=== PATIENT | male | born 1955 | race Caucasian/White ===

== ENCOUNTER 2021-10-09 10:13 | Day surgery (SDC) | payer MEDICARE, BC, SELFPAY ==
--- NOTE | 2021-10-09 06:38 | W.ANESPRE ---
General Info Date of Service Date Performed: 10/09/21 Height: 5 ft 5 in Weight: 74.843 kg Body Mass Index (BMI): 27.4 Surgical Procedure: Operation Date: 10/09/21 12:10 Proposed Procedure Side Surgeon p Cataract Extraction with IOL Implant Left Hernesto Pollard MD Meds Allergies and Home Medications Allergies Allergy/AdvReac Type Severity Reaction Status Date / Time No Known Allergies Allergy Unverified 10/09/21 10:12 Home Medication Medication Instructions Recorded ascorbic acid (vitamin C) 1,000 mg See Rx Instructions .Route .COMPLEX 10/06/21 tablet (Vitamin C) aspirin 81 mg tablet,delayed 81 mg PO HS 10/06/21 release diphenhydramine HCl 25 mg capsule 25 mg PO PRN PRN 10/06/21 (Benadryl) ibuprofen 200 mg capsule 400 mg PO PRN PRN 10/06/21 quxwfczobkic-skrqmmhh-crscyt tablet See Rx Instructions .Route .COMPLEX 10/06/21 omega 0-www-mut-fish oil 1,000 mg See Rx Instructions .Route .COMPLEX 10/06/21 (120 mg-180 mg) capsule (Fish Oil) omeprazole 20 mg capsule,delayed 20 mg PO DAILY 10/06/21 release trazodone 50 mg tablet 50 mg PO QHS 10/06/21 triamcinolone acetonide 0.1 % 1 applic topical BID 10/06/21 topical cream PFSH Medical History Medical History (Updated 10/09/21 @ 10:14 by Vonnie Kelley) Allergic rhinitis Amnesia 2009 Cataract Cerebrovascular disease Diverticular disease of colon Hypersomnia pt. denies this Neuropathy Nocturnal enuresis Overweight Sleep apnea Transient global amnesia per pt. and pt state it wasn't anything major, minor memory distrubance Surgical History Surgical History (Updated 10/09/21 @ 10:14 by Vonnie Kelley) History of colonoscopy Tobacco Smoking/Tobacco Use Status: Never Alcohol Alcohol Intake: never Substance Use Substance use: Never Substance use type: does not use Vital Signs and Lab Results Lab Results Blood Type / Crossmatch: No Data to Display Complete Blood Count: No Data to Display Complete Metabolic Panel: No Data to Display Liver Function Panel: No Data to Display Coagulation Panel: No Data to Display Cardiac Panel: No Data to Display Arterial Blood Gas: No Data to Display Venous Blood Gas: No Data to Display Pancreas Panel: No Data to Display Thyroid Panel: No Data to Display Infectious Disease: No Data to Display Blood Cultures: No Data to Display Toxicology Panel: No Data to Display Anesthesia Assessment and Plan Anesthesia History Personal History: No History of Anesthesia Complications Family History: No Family History of Anesthesia Complications Exercise Tolerance Exercise Tolerance: Metabolic Equivalents>4 Cardiac & Pulmonary Exam Cardiac Exam: Normal S1/S2 Heart Sounds Pulmonary Exam: Clear Bilateral Breath Sounds Implantable Cardiac Device Does patient have a Pacemaker or an ICD?: No Airway Exam Known Difficult Airway: No Mallampati Class: 2 Mouth Opening: Narrow (< 3cm) Thyromental Distance: Greater than 3 cm Neck Range of Motion: Full ROM Neck Circumference: Normal Teeth Condition: Normal Dentition and Removable Dentures/Plates Upper ASA Classification ASA Score: ASA 3 Emergency Case?: No NPO Status NPO Status: NPO Clears >2 hours, Solids >8 hours Anesthesia Plan Resuscitation Status: Full Code Anesthesia Technique: MAC Anesthesia Airway Planned: Natural Airway Monitors Used: Standard Monitors Preoperative Comments:: 67 yo male for cataract removal. Sig PMHx: cerebrovascular dz, neuropathy, JUN, transient global amnesia, recent LFTs elevated. State that the neuro issues are all related to a fall through a floor in the 80s. denies any recent symptoms of neuro issues.
[2021-10-09 10:20] VITALS: BP 122/72; PULSE 61; RESP 16; TEMP 36.2; O2SAT 97
[2021-10-09 10:26] VITALS: BMI 27.4
[2021-10-09] MEDS: Tropicam./Phenyleph. (1/2.5%) 5 ML BTL ×3 (10:38→10:52)
[2021-10-09] MEDS: Balanced Salt Soln.-PLUS 500 ML BAG (11:25)
[2021-10-09] MEDS: Duovisc Viscoelastic System EACH 1 EACH (11:26)
[2021-10-09] MEDS: Lidocaine 2% Jelly 6 ML SYR (11:27)
[2021-10-09] MEDS: Povidone-Iodine Ophth 30 ML BTL (11:29)
[2021-10-09] MEDS: Tetracaine 0.5% 4 ML BTL (11:30)
--- NOTE | 2021-10-09 11:43 | ROE_ITS ---
Date of service: 10/09/21 Time of Service: 10:46 Operative Note Operative Note DATE OF PROCEDURE: 10/09/21 PRE-OP DIAGNOSIS: Nuclear/posterior subcapsular cataract, left eye POST-OP DIAGNOSIS: same PROCEDURE: Cataract extraction using phacoemulsification with intraocular lens implant, left eye SURGEON: Hernesto Pollard ANESTHESIA TYPE: Local By Surgeon and MAC Refer to Anesthesia Record PATHOLOGY: none sent COMPLICATIONS: None Patient was transported to: same day Patient's condition: stable Implants: Miguel [employer] / [employer] Tecnis [id number] Indications: Progressive decreased vision due to cataract, left eye Procedure Description: CATARACT SURGERY OPERATIVE REPORT PREOPERATIVE DIAGNOSIS: 1. Nuclear/posterior subcapsular cataract, left eye POSTOPERATIVE DIAGNOSIS: Same OPERATION: 1. Cataract extraction using phacoemulsification with posterior chamber intraocular lens implant, left eye. IOL: IOL Radiographer Mammographer/Model: Miguel [employer] Miguel / ADAN Tecnis [id number] IOL Power: + 21.5 diopters IOL Serial Number: [id number] Optic Diameter: 6.0 mm Haptic/Overall Diameter: 13.0 mm PHACO INFO: Ilia Goodfilmsurion Vision System with OZil and Active [employer]uidics Cumulative Dispersed Energy (CDE): 7.84 seconds SURGEON: Hernesto Pollard MD, SAAD ANESTHESIA: Monitored A [facility] (MAC), with local sub-tenon's anesthetic infiltration COMPLICATIONS: None SPECIMENS: None INDICATIONS FOR PROCEDURE: The patient is a 66-year-old gentleman with history of diminished visual acuity in his left eye secondary to the development of nuclear/posterior subcapsular cataract. The option of cataract surgery was offered to the patient and he wished to proceed. PROCEDURE: The correct surgical eye was identified and marked as the left eye and the pupil was dilated in the preoperative area using mydriatics and cycloplegics. The dilated pupil size was 7.0 mm. . The patient was brought to the operating room where cardiopulmonary monitoring was instituted and surgical time-out was performed, confirming the correct operative eye and IOL power. Topical anesthesia was administered and ophthalmic povidone-iodine 5% was instilled into the conjunctival fornices. Lidocaine gel was applied to the cornea and the eli-ocular area was prepped with Betadine 10% solution and draped in the usual sterile fashion for intraocular surgery, including an aperture drape. A Tegaderm transparent film dressing was cut in half and used to cover the lashes and lid margins. Care was taken to sequester the lashes and lid margins under the Tegaderm dressing. A lid speculum was placed between the lids of the operative eye and the Ilia Lux[employer] Revalia operating microscope was maneuvered into position. Helen scissors were then used to make a conjunctival buttonhole approximately 6mm posterior to the limbus in the inferonasal quadrant. Blunt dissection was carried out to expose bare sclera, and a blunt-tipped sub-tenon?s anesthesia cannula was introduced and passed posteriorly along the globe where non- preserved plain lidocaine was injected into posterior sub-Tenon?s space. A sideport knife was used to make a paracentesis port superiorly/superiortemporally. Intraocular phenylephrine/lidocaine was injected int the anterior chamber.. The anterior chamber was filled with viscoelastic. A 2.4mm keratome knife was used to construct a 2-plane near-clear corneal tunnel extending 2.0mm into clear cornea temporally. A flap was raised on the anterior capsule and capsulorhexis forceps were used to complete a continuous curvilinear capsulorhexis of 5.5 mm. Balanced salt solution was then used to perform cortical cleaving hydrodissection and nuclear hydrodelineation until the lens could be freely rotated within the capsular bag. The lens nucleus was then disassembled and removed within the capsular bag and iris plane using phacoemulsification. Residual cortical material was removed using the 45-degree angled silicone I/A tip with 0.3mm port. The posterior capsule was carefully polished to remove as much residual lens epithelial cells as safely possible. The capsular bag was then inflated and the anterior chamber deepened with viscoelastic. The lens implant described above was inserted into the capsular bag using the ADAN [place] Injector. A Kuglen hook was used to dial the IOL into position. Residual viscoelastic was then removed first from posterior to the IOL, then from the anterior chamber using the I/A handpiece. The lens implant was noted to center nicely within the capsular bag. The incisions were stromally hydrated, and the anterior chamber was reformed using BSS. Then 0.5cc of moxifloxacin 1.0mg/ml were injected into the capsular bag and anterior chamber. The incisions were checked with a Weck spear and found to be secure. Several drops of ophthalmic povidone-iodine 5% were then applied to the eye followed by two drops of Imprimis combination prednisolone/moxifloxacin/nepafenac solution. The drapes were removed and a clear plastic protective eye shield was placed over the eye. The patient was then returned to [facility] Day Surgery in stable condition.
--- NOTE | 2021-10-09 11:44 | W.PM.DSUDISC ---
Discharge Plan Disposition Patient Disposition: HOME Condition: Good Discharge Details Attending Provider: Hernesto Pollard Primary Care Provider: RODRIGO MEHTA Home Meds and New Rx's Prescriptions: No Action ascorbic acid (vitamin C) [Vitamin C] 1,000 mg Tablet See Rx Instructions .ROUTE .COMPLEX Rx Instructions: 1 g orally QOD. (MAR-AUGUST) trazodone 50 mg Tablet 50 mg PO QHS ibuprofen 200 mg Capsule 400 mg PO PRN PRN aspirin [Aspir-81] 81 mg Tablet,Delayed Release (Dr/Ec) 81 mg PO HS triamcinolone acetonide 0.1 % Cream 1 applic TOPICAL BID diphenhydramine HCl [Benadryl] 25 mg Capsule 25 mg PO PRN PRN omeprazole 20 mg Capsule,Delayed Release(Dr/Ec) 20 mg PO DAILY Centrum Silver Tablet See Rx Instructions .ROUTE .COMPLEX Rx Instructions: 1 tab orally QOD omega 5-zgl-ddm-fish oil [Fish Oil] 1,000 mg (120 mg-180 mg) Capsule See Rx Instructions .ROUTE .COMPLEX Rx Instructions: 1 cap orally QOD Discharge Instructions Stand Alone Forms: Post-op Topical Cataract, Ravin Turner (DSU) Discharge Orders Discharge Orders: Discharge Order (Routine); Ordered 10/09/21 Ordered By: Hernesto Pollard DS: Diagnosis Discharge Diagnosis (1) Nuclear sclerotic cataract of left eye: Status: Resolved (2) Posterior subcapsular age-related cataract of left eye: Status: Resolved
[2021-10-09 11:54] VITALS: BP 116/50; PULSE 60; RESP 16; TEMP 36.5; O2SAT 98
--- NOTE | 2021-10-09 12:10 | W.ANESPOSTOP ---
Postoperative Evaluation Date, Time and Location Date Performed: 10/09/21 Time Performed: 11:10 Patient Location: Day Surgery Unit Vital Signs Most Recent Imported Vital Signs: Most Recent Vital Signs Temp Pulse Resp BP Pulse Ox 36.5 C 60 16 116/50 L 98 10/09/21 11:54 10/09/21 11:54 10/09/21 11:54 10/09/21 11:54 10/09/21 11:54 Pain Score Most Recent Pain Score: Most Recent Pain Score Pain Level 0 10/09/21 11:54 Assessment Mental Status: Awake (Alert & Oriented to Patient Baseline) Airway and Respiratory Function: Patent airway with normal (patient baseline) respiratory exam Cardiovascular Function: Hemodynamically Stable Hydration Status: Adequately Hydrated Nausea & Vomiting: No Nausea or Vomiting Pain: Pt. Denies Any Pain Peripheral Nerve Block: Patient did not receive a nerve block
== END 2021-10-09 12:13 | disposition home or self-care (01) ==
PROVIDERS: PCP Family Medicine; Visit Provider Ophthalmology
PROC: (CPT 66984; principal; 2021-10-09 12:15)
DX: H25.812 Combined forms of age-related cataract, left eye (principal); G47.30 Sleep apnea, unspecified; I67.9 Cerebrovascular disease, unspecified
CPT/HCPCS: 66984; V2632